=== PATIENT | female | born 1960 | race Caucasian/White ===

== ENCOUNTER 2020-05-08 22:45 | Observation (INO) | payer MEDICARE ==
[2020-05-08 23:08] LABS: HCT 39.7 % (34.0-46.0); HGB 12.8 gm/dL (11.4-16.0); Hypochromasia Slight; MCHC 32.2 g/dL (31.0-37.0); MCV 102.4 fL (80.0-100.0); Macrocytosis Slight; Mean Platelet Volume 6.6; Platelet Count 374 k/uL (150-450); RBC 3.88 m/uL (3.80-5.40); RDW 14.2 % (11.5-15.5); WBC 15.2 k/uL (3.8-10.6)
[2020-05-08 23:21] LABS: ALT 18 U/L (4-34); AST 38 U/L (14-36); African American GFR (CKD) 49 (>60 ml/min/1.73 sqM); Albumin 3.9 g/dL (3.5-5.0); Alcohol <10 mg/dL; Alkaline Phosphatase 110 U/L (38-126); Anion Gap 7 mmol/L; Blood Urea Nitrogen 19 mg/dL (7-17); Calcium 8.7 mg/dL (8.4-10.2); Carbon Dioxide 26 mmol/L (22-30); Chloride 100 mmol/L (98-107); Glucose 99 mg/dL (74-99); Non-African American GFR(CKD) 43 (>60 ml/min/1.73 sqM); Potassium 3.9 mmol/L (3.5-5.1); Sodium 133 mmol/L (137-145); Total Bilirubin 0.3 mg/dL (0.2-1.3); Total Protein 7.8 g/dL (6.3-8.2)
[2020-05-08 23:22] LABS: Lactic Acid, Venous 1.5 mmol/L (0.7-2.0)
[2020-05-08 23:30] LABS: Monocytes # (M) 0.61 k/uL (0-1.0); Neutrophils # (M) 10.79 k/uL (1.3-7.7); Neutrophils % (M) 71 %; Nucleated Red Blood Cells 0 /100 WBC (0-0); Total Cells Counted 100
[2020-05-08 23:33] LABS: INR 0.9 (<1.2); Partial Thromboplastin Time 23.6 sec (22.0-30.0); Prothrombin Time 9.9 sec (9.0-12.0)
--- NOTE | 2020-05-08 23:37 | ED ---
General Adult HPI - General Chief complaint: Overdose Stated complaint: unresponsive Time Seen by Provider: 05/08/20 22:55 Source: patient, EMS Mode of arrival: EMS Limitations: no limitations - History of Present Illness Initial comments: Patient is a 59-year-old woman brought by ambulance to be evaluated after her family thought that she had stopped breathing. The patient reported that she had been fairly active earlier in the day and she told family she was going to take a nap. She went to lie down on the couch, and then family member thought t hat she had stopped breathing. They did start performing CPR and called EMS. On EMS arrival, the patient did have palpable pulses and detectable heart rhythm. They administered 2 mg of Narcan and the patient became alert and responsive. No ACLS was required. When I interview the patient, she denies any symptoms other than a little bit of headache, which she states is typical of her usual headaches. She states she tends to get headaches regularly. Patient denies any neurologic symptoms. No chest pain or palpitations. No dyspnea, nausea or vomiting. She denies recent change in bowel movements or urination. -: minutes(s) Location: head Radiation: non-radiation Severity scale (1-10): 2 Quality: dull Consistency: constant Improves with: none Worsens with: none Associated Symptoms: denies other symptoms Treatments Prior to Arrival: none - Related Data Home Medications Medication Instructions Recorded Confirmed Ergocalciferol [Vitamin D2 50,000 unit PO FR 05/09/20 05/09/20 (DRISDOL)] Metoprolol Tartrate [Lopressor] 75 mg PO BID 05/09/20 05/09/20 Previous Rx's Medication Instructions Recorded Cyclobenzaprine [Flexeril] 10 mg PO BID PRN #0 05/09/20 Naloxone [Narcan] 1 mg SQ ONCE PRN #2 syringe 05/09/20 oxyCODONE-APAP 10-325MG [Percocet 1 tab PO BID PRN #0 05/09/20 10-325 mg] Allergies Allergy/AdvReac Type Severity Reaction Status Date / Time cephalexin Allergy Dyspnea Verified 05/09/20 08:03 Review of Systems ROS Statement: Those systems with pertinent positive or pertinent negative responses have been documented in the HPI. ROS Other: All systems not noted in ROS Statement are negative. Constitutional: Denies: fever, chills Eyes: Denies: vision change Respiratory: Denies: cough, dyspnea, wheezes, hemoptysis Cardiovascular: Denies: chest pain, palpitations, orthopnea, edema, syncope Gastrointestinal: Denies: abdominal pain, nausea, vomiting, diarrhea Genitourinary: Denies: dysuria, hematuria Musculoskeletal: Denies: back pain Skin: Denies: rash Neurological: Reports: headache. Denies: weakness, numbness, paresthesias, confusion, vertigo Past Medical History Past Medical History: Cancer, COPD, Hypertension Additional Past Medical History / Comment(s): cervical cancer, breast cancer History of Any Multi-Drug Resistant Organisms: None Reported Additional Past Surgical History / Comment(s): ooferectomy Past Psychological History: No Psychological Hx Reported Smoking Status: Current every day smoker Past Alcohol Use History: None Reported Past Drug Use History: Marijuana General Exam Limitations: no limitations General appearance: alert, in no apparent distress Head exam: Present: atraumatic, normocephalic Eye exam: Present: normal appearance. Absent: scleral icterus, conjunctival injection ENT exam: Present: mucous membranes dry Neck exam: Present: normal inspection Respiratory exam: Present: normal lung sounds bilaterally. Absent: respiratory distress, wheezes, rales, rhonchi, stridor Cardiovascular Exam: Present: regular rate, normal rhythm, normal heart sounds. Absent: systolic murmur, diastolic murmur, rubs, gallop GI/Abdominal exam: Present: soft. Absent: distended, tenderness, guarding, rebound, rigid, mass Extremities exam: Present: normal inspection, normal capillary refill. Absent: pedal edema, calf tenderness Back exam: Present: normal inspection. Absent: CVA tenderness (R), CVA tenderness (L) Neurological exam: Present: alert, oriented X3, CN II-XII intact. Absent: motor sensory deficit Skin exam: Present: warm, dry, intact, normal color. Absent: rash Course Vital Signs 05/08/20 05/08/20 05/08/20 22:50 23:04 23:36 Temperature 97.8 F Pulse Rate 88 Respiratory 18 18 Rate Blood Pressure 132/79 O2 Sat by Pulse 99 Oximetry 05/09/20 05/09/20 05/09/20 00:24 01:00 02:03 Temperature Pulse Rate 70 69 Respiratory 18 14 Rate Blood Pressure 111/71 105/59 O2 Sat by Pulse 95 95 100 Oximetry 05/09/20 02:40 Temperature Pulse Rate 70 Respiratory 15 Rate Blood Pressure 109/69 O2 Sat by Pulse 96 Oximetry EKG Findings - EKG Results: EKG: interpreted by KYLE BEAVERS, sinus rhythm (Rate 74 bpm), normal axis, normal QRS, normal ST/T, no acute changes Medical Decision Making - Medical Decision Making Patient is a 59-year-old woman brought from home where she appeared to stop breathing while sleeping. The patient did become responsive when EMS gave Narcan. The patient will be admitted for telemetry monitoring and serial cardiac enzymes. In addition there may be a trace of pneumonia, and patient started on azithromycin for atypical organisms. - Lab Data Result diagrams: 05/09/20 05:31 05/09/20 05:31 Lab Results 05/08/20 05/08/20 05/08/20 Range/Units 23:04 23:04 23:04 WBC 15.2 H (3.8-10.6) k/uL RBC 3.88 (3.80-5.40) m/uL Hgb 12.8 (11.4-16.0) gm/dL Hct 39.7 (34.0-46.0) % MCV 102.4 H (80.0-100.0) fL MCH 33.0 (25.0-35.0) pg MCHC 32.2 (31.0-37.0) g/dL RDW 14.2 (11.5-15.5) % Plt Count 374 (150-450) k/uL MPV 6.6 Neutrophils % (Manual) 71 % Lymphocytes % (Manual) 25 % Monocytes % (Manual) 4 % Neutrophils # (Manual) 10.79 H (1.3-7.7) k/uL Lymphocytes # (Manual) 3.80 (1.0-4.8) k/uL Monocytes # (Manual) 0.61 (0-1.0) k/uL Nucleated RBCs 0 (0-0) /100 WBC Manual Slide Review Performed Hypochromasia Slight Macrocytosis Slight PT (9.0-12.0) sec INR (<1.2) APTT (22.0-30.0) sec Sodium 133 L (137-145) mmol/L Potassium 3.9 (3.5-5.1) mmol/L Chloride 100 (98-107) mmol/L Carbon Dioxide 26 (22-30) mmol/L Anion Gap 7 mmol/L BUN 19 H (7-17) mg/dL Creatinine 1.34 H (0.52-1.04) mg/dL Est GFR (CKD-EPI)AfAm 49 (>60 ml/min/1.73 sqM) Est GFR (CKD-EPI)NonAf 43 (>60 ml/min/1.73 sqM) Glucose 99 (74-99) mg/dL Plasma Lactic Acid Darren 1.5 (0.7-2.0) mmol/L Calcium 8.7 (8.4-10.2) mg/dL Total Bilirubin 0.3 (0.2-1.3) mg/dL AST 38 H (14-36) U/L ALT 18 (4-34) U/L Alkaline Phosphatase 110 (38-126) U/L Ammonia <9 (<30) umol/L Troponin I (0.000-0.034) ng/mL Total Protein 7.8 (6.3-8.2) g/dL Albumin 3.9 (3.5-5.0) g/dL Urine Color Urine Appearance (Clear) Urine pH (5.0-8.0) Ur Specific [place] (1.001-1.035) Urine Protein (Negative) Urine Glucose (UA) (Negative) Urine Ketones (Negative) Urine Blood (Negative) Urine Nitrite (Negative) Urine Bilirubin (Negative) Urine Urobilinogen (<2.0) mg/dL Ur Leukocyte Esterase (Negative) Urine RBC (0-5) /hpf Urine WBC (0-5) /hpf Hyaline Casts (0-2) /lpf Urine Mucus (None) /hpf Urine Opiates Screen (NotDetected) Ur Oxycodone Screen (NotDetected) Urine Methadone Screen (NotDetected) Ur Propoxyphene Screen (NotDetected) Ur Barbiturates Screen (NotDetected) U Tricyclic Antidepress (NotDetected) Ur Phencyclidine Scrn (NotDetected) Ur Amphetamines Screen (NotDetected) U Methamphetamines Scrn (NotDetected) U Benzodiazepines Scrn (NotDetected) Urine Cocaine Screen (NotDetected) U Marijuana (THC) Screen (NotDetected) Serum Alcohol <10 mg/dL Coronavirus (PCR) (Not Detectd) 05/08/20 05/08/20 05/09/20 Range/Units 23:04 23:19 01:00 WBC (3.8-10.6) k/uL RBC (3.80-5.40) m/uL Hgb (11.4-16.0) gm/dL Hct (34.0-46.0) % MCV (80.0-100.0) fL MCH (25.0-35.0) pg MCHC (31.0-37.0) g/dL RDW (11.5-15.5) % Plt Count (150-450) k/uL MPV Neutrophils % (Manual) % Lymphocytes % (Manual) % Monocytes % (Manual) % Neutrophils # (Manual) (1.3-7.7) k/uL Lymphocytes # (Manual) (1.0-4.8) k/uL Monocytes # (Manual) (0-1.0) k/uL Nucleated RBCs (0-0) /100 WBC Manual Slide Review Hypochromasia Macrocytosis PT 9.9 (9.0-12.0) sec INR 0.9 (<1.2) APTT 23.6 (22.0-30.0) sec Sodium (137-145) mmol/L Potassium (3.5-5.1) mmol/L Chloride (98-107) mmol/L Carbon Dioxide (22-30) mmol/L Anion Gap mmol/L BUN (7-17) mg/dL Creatinine (0.52-1.04) mg/dL Est GFR (CKD-EPI)AfAm (>60 ml/min/1.73 sqM) Est GFR (CKD-EPI)NonAf (>60 ml/min/1.73 sqM) Glucose (74-99) mg/dL Plasma Lactic Acid Darren (0.7-2.0) mmol/L Calcium (8.4-10.2) mg/dL Total Bilirubin (0.2-1.3) mg/dL AST (14-36) U/L ALT (4-34) U/L Alkaline Phosphatase (38-126) U/L Ammonia (<30) umol/L Troponin I <0.012 (0.000-0.034) ng/mL Total Protein (6.3-8.2) g/dL Albumin (3.5-5.0) g/dL Urine Color Yellow Urine Appearance Clear (Clear) Urine pH 5.5 (5.0-8.0) Ur Specific [place] 1.019 (1.001-1.035) Urine Protein 1+ H (Negative) Urine Glucose (UA) Negative (Negative) Urine Ketones Negative (Negative) Urine Blood Negative (Negative) Urine Nitrite Negative (Negative) Urine Bilirubin Negative (Negative) Urine Urobilinogen <2.0 (<2.0) mg/dL Ur Leukocyte Esterase Negative (Negative) Urine RBC 9 H (0-5) /hpf Urine WBC 1 (0-5) /hpf Hyaline Casts 1 (0-2) /lpf Urine Mucus Rare H (None) /hpf Urine Opiates Screen Detected H (NotDetected) Ur Oxycodone Screen Detected H (NotDetected) Urine Methadone Screen Not Detected (NotDetected) Ur Propoxyphene Screen Not Detected (NotDetected) Ur Barbiturates Screen Not Detected (NotDetected) U Tricyclic Antidepress Detected H (NotDetected) Ur Phencyclidine Scrn Not Detected (NotDetected) Ur Amphetamines Screen Not Detected (NotDetected) U Methamphetamines Scrn Not Detected (NotDetected) U Benzodiazepines Scrn Not Detected (NotDetected) Urine Cocaine Screen Not Detected (NotDetected) U Marijuana (THC) Screen Detected H (NotDetected) Serum Alcohol mg/dL Coronavirus (PCR) (Not Detectd) 05/09/20 Range/Units 01:04 WBC (3.8-10.6) k/uL RBC (3.80-5.40) m/uL Hgb (11.4-16.0) gm/dL Hct (34.0-46.0) % MCV (80.0-100.0) fL MCH (25.0-35.0) pg MCHC (31.0-37.0) g/dL RDW (11.5-15.5) % Plt Count (150-450) k/uL MPV Neutrophils % (Manual) % Lymphocytes % (Manual) % Monocytes % (Manual) % Neutrophils # (Manual) (1.3-7.7) k/uL Lymphocytes # (Manual) (1.0-4.8) k/uL Monocytes # (Manual) (0-1.0) k/uL Nucleated RBCs (0-0) /100 WBC Manual Slide Review Hypochromasia Macrocytosis PT (9.0-12.0) sec INR (<1.2) APTT (22.0-30.0) sec Sodium (137-145) mmol/L Potassium (3.5-5.1) mmol/L Chloride (98-107) mmol/L Carbon Dioxide (22-30) mmol/L Anion Gap mmol/L BUN (7-17) mg/dL Creatinine (0.52-1.04) mg/dL Est GFR (CKD-EPI)AfAm (>60 ml/min/1.73 sqM) Est GFR (CKD-EPI)NonAf (>60 ml/min/1.73 sqM) Glucose (74-99) mg/dL Plasma Lactic Acid Darren (0.7-2.0) mmol/L Calcium (8.4-10.2) mg/dL Total Bilirubin (0.2-1.3) mg/dL AST (14-36) U/L ALT (4-34) U/L Alkaline Phosphatase (38-126) U/L Ammonia (<30) umol/L Troponin I (0.000-0.034) ng/mL Total Protein (6.3-8.2) g/dL Albumin (3.5-5.0) g/dL Urine Color Urine Appearance (Clear) Urine pH (5.0-8.0) Ur Specific [place] (1.001-1.035) Urine Protein (Negative) Urine Glucose (UA) (Negative) Urine Ketones (Negative) Urine Blood (Negative) Urine Nitrite (Negative) Urine Bilirubin (Negative) Urine Urobilinogen (<2.0) mg/dL Ur Leukocyte Esterase (Negative) Urine RBC (0-5) /hpf Urine WBC (0-5) /hpf Hyaline Casts (0-2) /lpf Urine Mucus (None) /hpf Urine Opiates Screen (NotDetected) Ur Oxycodone Screen (NotDetected) Urine Methadone Screen (NotDetected) Ur Propoxyphene Screen (NotDetected) Ur Barbiturates Screen (NotDetected) U Tricyclic Antidepress (NotDetected) Ur Phencyclidine Scrn (NotDetected) Ur Amphetamines Screen (NotDetected) U Methamphetamines Scrn (NotDetected) U Benzodiazepines Scrn (NotDetected) Urine Cocaine Screen (NotDetected) U Marijuana (THC) Screen (NotDetected) Serum Alcohol mg/dL Coronavirus (PCR) Not Detected (Not Detectd) Disposition Clinical Impression: Accidental drug overdose, Syncope Narrative: Possible pneumonia Disposition: ADMITTED IP TO THIS HOSP Condition: Fair
--- NOTE | 2020-05-08 23:54 | CT ---
EXAMINATION TYPE: CT brain wo con DATE OF EXAM: 05/08/2020 COMPARISON: None HISTORY: syncope episodes CT DLP: 1131.4 mGycm Automated exposure control for dose reduction was used. Ventricles have normal size. There is no mass effect nor midline shift. There is no sign of intracran ial hemorrhage. There is no evidence of cerebral edema. The calvarium is intact. Skull base is intact . Sella turcica appears normal. IMPRESSION: Negative unenhanced head CT scan.
--- NOTE | 2020-05-08 23:56 | XR ---
EXAMINATION TYPE: XR chest 1V portable DATE OF EXAM: 05/08/2020 COMPARISON: NONE HISTORY: Chest pain TECHNIQUE: Single view FINDINGS: There is some coarsening interstitial markings. There is no heart failure. Heart size is no rmal. Thoracic aorta is atheromatous. IMPRESSION: Mild pulmonary interstitial infiltrates. This could relate to some mild interstitial pneu monia or fibrosis.
[2020-05-09 01:12] LABS: Appearance,Urine Clear (Clear); Bilirubin,Urine Negative (Negative); Blood,Urine Negative (Negative); Color,Urine Yellow; Glucose,Urine (UA) Negative (Negative); Hyaline Casts,Urine 1 /lpf (0-2); Ketones,Urine Negative (Negative); Leukocyte Esterase,Urine Negative (Negative); Mucus,Urine Rare /hpf; Nitrite,Urine Negative (Negative); PH, Urine 5.5 (5.0-8.0); Protein,Urine 1+ (Negative); RBC,Urine 9 /hpf (0-5); Specific Gravity,Urine 1.019 (1.001-1.035); Urobilinogen,Urine <2.0 mg/dL (<2.0); WBC,Urine 1 /hpf (0-5)
[2020-05-09] MEDS ORDERED: ACETAMINOPHEN TAB 325 MG TAB PO STA (01:13)
[2020-05-09 01:19] LABS: Cocaine Screen,Urine Not Detected (NotDetected); Phencyclidine Screen,Urine Not Detected (NotDetected); Urn Cannabinoid Scrn Detected (NotDetected)
[2020-05-09 01:20] LABS: Amphetamine Screen,Urine Not Detected (NotDetected); Barbiturate Screen,Urine Not Detected (NotDetected); Benzodiazepines Screen,Urine Not Detected (NotDetected); Methadone Screen, Urine Not Detected (NotDetected); Opiate Screen,Urine Detected (NotDetected); Oxycodone Screen, Urine Detected (NotDetected); Tricyclic Antidepressant,Urine Detected (NotDetected)
[2020-05-09] MEDS ORDERED: NITROGLYCERIN SL TABS 0.4 MG TAB SUBLINGUAL PRN (02:03)
[2020-05-09] MEDS ORDERED: AZITHROMYCIN 500 MG TAB PO STA (02:06)
[2020-05-09] MEDS: IPRATROPIUM-ALBUTEROL 3 ML NEB INHALATION SCH ×2 (07:24→11:18)
[2020-05-09 08:42] VITALS: BP 118/79; RESP 16; TEMP 97.5
[2020-05-09] MEDS ORDERED: oxyCODONE-APAP 10-325MG 1 EACH TAB PO PRN (08:58)
[2020-05-09] MEDS ORDERED: ACETAMINOPHEN TAB 325 MG TAB PO PRN (09:00)
[2020-05-09] MEDS ORDERED: ERGOCALCIFEROL 50,000 UNIT CAP PO SCH (09:00)
[2020-05-09] MEDS ORDERED: METOPROLOL TARTRATE 25 MG TAB PO SCH (09:00)
[2020-05-09] MEDS ORDERED: CYCLOBENZAPRINE 10 MG TAB PO SCH (09:00)
[2020-05-09 09:37] LABS: HGB 12.1 gm/dL (11.4-16.0); Hypochromasia Marked; MCH 32.7 pg (25.0-35.0); MCHC 31.1 g/dL (31.0-37.0); MCV 105.2 fL (80.0-100.0); Macrocytosis Moderate; Mean Platelet Volume 7.4; Platelet Count 360 k/uL (150-450); RBC 3.71 m/uL (3.80-5.40); WBC 14.4 k/uL (3.8-10.6)
[2020-05-09 09:46] LABS: Calcium 8.6 mg/dL (8.4-10.2); Potassium 5.1 mmol/L (3.5-5.1)
[2020-05-09 10:12] LABS: Eosinophils # (M) 0.14 k/uL (0-0.7); Monocytes # (M) 0.58 k/uL (0-1.0); Neutrophils # (M) 8.78 k/uL (1.3-7.7); Neutrophils % (M) 61 %; Nucleated Red Blood Cells 0 /100 WBC (0-0); Total Cells Counted 100
[2020-05-09 11:29] VITALS: PULSE 73
[2020-05-10] MEDS ORDERED: ASPIRIN 325 MG TAB PO SCH (09:00)
--- NOTE | 2020-05-25 23:35 | P.HPIM ---
History of Present Illness H&P Date: 05/09/20 Chief Complaint: Decreased responsiveness Patient is a 59-year-old female with known history of COPD, hypertension, cervical cancer and breast cancer and currently everyday smoker and marijuana use was brought to the hospital by her family thought that she had stopped breathing. Patient usually fairly active earlier in the day and told family she was going to take a nap. She went to lie down on the couch and then family noticed that she has trouble breathing. They did perform CPR at home and called EMS. Upon EMS arrival, patient did have palpable pulses undetectable heart rhythm. Patient was administered with 2 mg of Narcan and patient became more alert and responsive. No ACLS was required. Patient does complain of mild headache which she gets on and off exam no recent illnesses. No complaints of any rashes. No dysuria or hematuria. No dizziness or lightheadedness. No diarrhea or abdominal pain. CT head showed negative unenhanced head CT scan. Chest x-ray showed mild pulmonary interstitial infiltrates. Did correlate to some mild interstitial pneumonia or fibrosis. Lab data showed WBC 15.2, hemoglobin 12.8 and platelets 374 Sodium 133, potassium 3.9, BUN 19 and creatinine 1.34 AST of 38 ALT 18 Urine negative for infection UDS is positive for opiates, oxycodone, tricyclic antidepressants and marijuana. Review of Systems Constitutional: Patient denies any fever or chills . No generalized weakness or weight loss. Abdomen: Patient denied nausea vomiting and diarrhea and abdominal pain. Cardiovascular: Patient denies any chest pain or short of breath no palpitations. Respiratory: patient denied any cough or sputum production. No shortness of breath Neurologic: Patient denied any numbness or tingling headache. Musculoskeletal: Patient denies any complaints of joint swelling or deformity. Skin: Negative Psychiatric: Negative Endocrine: No heat or cold intolerance. No recent weight gain. Genitourinary: No dysuria or hematuria. All other 14 point ROS negative except the above Past Medical History Past Medical History: Cancer, COPD, Hypertension Additional Past Medical History / Comment(s): cervical cancer, breast cancer History of Any Multi-Drug Resistant Organisms: None Reported Additional Past Surgical History / Comment(s): ooferectomy Past Psychological History: No Psychological Hx Reported Smoking Status: Current every day smoker Past Alcohol Use History: None Reported Past Drug Use History: Marijuana Medications and Allergies Home Medications Medication Instructions Recorded Confirmed Type Cyclobenzaprine [Flexeril] 10 mg PO BID PRN #0 05/09/20 05/09/20 Rx Ergocalciferol [Vitamin D2 50,000 unit PO FR 05/09/20 05/09/20 History (DRISDOL)] Metoprolol Tartrate [Lopressor] 75 mg PO BID 05/09/20 05/09/20 History Naloxone [Narcan] 1 mg SQ ONCE PRN #2 syringe 05/09/20 Rx oxyCODONE-APAP 10-325MG [Percocet 1 tab PO BID PRN #0 05/09/20 05/09/20 Rx 10-325 mg] Allergies Allergy/AdvReac Type Severity Reaction Status Date / Time cephalexin Allergy Dyspnea Verified 05/09/20 08:03 Physical Exam Vitals: Vital Signs Temp Pulse Pulse Resp BP BP Pulse Ox 05/09/20 11:29 73 05/09/20 11:19 72 05/09/20 08:32 97.5 F L 81 16 118/79 95 05/09/20 03:15 98.1 F 67 18 102/61 100 05/09/20 02:40 70 15 109/69 96 05/09/20 02:03 100 05/09/20 01:00 69 14 105/59 95 05/09/20 00:24 70 18 111/71 95 05/08/20 23:36 18 05/08/20 23:04 99 05/08/20 22:50 97.8 F 88 18 132/79 Intake and Output 05/08/20 05/09/20 05/09/20 22:59 06:59 14:59 Other: # Voids 0 Weight 58.967 kg 58.967 kg PHYSICAL EXAMINATION: Patient is lying in the bed comfortably, no acute distress, awake alert and oriented.. HEENT: Normocephalic. Neck is supple. Pupils reactive. Nostrils clear. Oral cavity is moist. Ears reveal no drainage. Neck reveals no JVD, carotid bruits, or thyromegaly. CHEST EXAMINATION: Trachea is central. Symmetrical expansion. Lung gallagher clear to auscultation and percussion. CARDIAC: Normal S1, S2 with no gallops. No murmurs ABDOMEN: Soft. Bowel sounds normal. No organomegaly. No abdominal bruits. Extremities: reveal no edema. No clubbing or cyanosis Neurologically awake, alert, oriented x3 with well-coordinated movements. No focal deficits noted Skin: No rash or skin lesions. Psychiatric: Coperative. Nonsuicidal Musculoskeletal: No joint swelling or deformity. Normal range of motion. Results CBC & Chem 7: 05/09/20 05:31 05/09/20 05:31 Labs: Abnormal Lab Results - Last 24 Hours (Table) 05/08/20 05/08/20 05/09/20 Range/Units 23:04 23:04 01:00 WBC 15.2 H (3.8-10.6) k/uL RBC (3.80-5.40) m/uL MCV 102.4 H (80.0-100.0) fL Neutrophils # (Manual) 10.79 H (1.3-7.7) k/uL Lymphocytes # (Manual) (1.0-4.8) k/uL Sodium 133 L (137-145) mmol/L BUN 19 H (7-17) mg/dL Creatinine 1.34 H (0.52-1.04) mg/dL Glucose (74-99) mg/dL AST 38 H (14-36) U/L Urine Protein 1+ H (Negative) Urine RBC 9 H (0-5) /hpf Urine Mucus Rare H (None) /hpf Urine Opiates Screen Detected H (NotDetected) Ur Oxycodone Screen Detected H (NotDetected) U Tricyclic Antidepress Detected H (NotDetected) U Marijuana (THC) Screen Detected H (NotDetected) 05/09/20 05/09/20 Range/Units 05:31 05:31 WBC 14.4 H (3.8-10.6) k/uL RBC 3.71 L (3.80-5.40) m/uL MCV 105.2 H (80.0-100.0) fL Neutrophils # (Manual) 8.78 H (1.3-7.7) k/uL Lymphocytes # (Manual) 4.90 H (1.0-4.8) k/uL Sodium 134 L (137-145) mmol/L BUN 18 H (7-17) mg/dL Creatinine (0.52-1.04) mg/dL Glucose 109 H (74-99) mg/dL AST (14-36) U/L Urine Protein (Negative) Urine RBC (0-5) /hpf Urine Mucus (None) /hpf Urine Opiates Screen (NotDetected) Ur Oxycodone Screen (NotDetected) U Tricyclic Antidepress (NotDetected) U Marijuana (THC) Screen (NotDetected) Thrombosis Risk Factor Assmnt - DVT/VTE Prophylaxis DVT/VTE Prophylaxis: Pharmacologic Prophylaxis ordered - Choose All That Apply Each Risk Factor Represents 2 Points: Age 61-74 years Thrombosis Risk Factor Assessment Total Risk Factor Score: 2 Thrombosis Risk Factor Assessment Level: Low Risk Assessment and Plan Assessment: Decreased responsiveness at home likely due to pain medication and muscle relaxant use. Resolved now. UDS is positive for opiates, oxycodone, antidepressant marijuana acute kidney injury likely prerenal improved now Hypovolemic hyponatremia Hypertension COPD not in exacerbation Cervical cancer and breast cancer Currently everyday smoker Marijuana use DVT prophylaxis with heparin subcu Plan: Patient will be continued on IV hydration and was given IV Narcan in the ER and by EMS. Patient is awake alert and oriented x3 now. Patient was advised to r educe her pain medication dose and follow-up with primary care physician. Patient wishes to be discharged home today.
--- NOTE | 2020-05-25 23:37 | P.DS ---
Providers Date of admission: 05/09/20 02:05 Expected date of discharge: 05/09/20 Attending physician: Jurgen De Anda Primary care physician: Physician Nonstaff Hospital Course: Discharge diagnosis Decreased responsiveness at home likely due to pain medication and muscle relaxant use. Resolved now. UDS is positive for opiates, oxycodone, antidepressant marijuana acute kidney injury likely prerenal improved now Hypovolemic hyponatremia Hypertension COPD not in exacerbation Cervical cancer and breast cancer Currently everyday smoker Marijuana use DVT prophylaxis with heparin subcu Hospital course Patient is a 59-year-old female with known history of COPD, hypertension, cervical cancer and breast cancer and currently everyday smoker and marijuana use was brought to the hospital by her family thought that she had stopped breathing. Patient usually fairly active earlier in the day and told family she was going to take a nap. She went to lie down on the couch and then family noticed that she has trouble breathing. They did perform CPR at home and called EMS. Upon EMS arrival, patient did have palpable pulses undetectable heart rhythm. Patient was administered with 2 mg of Narcan and patient became more alert and responsive. No ACLS was required. Patient does complain of mild headache which she gets on and off exam no recent illnesses. No complaints of any rashes. No dysuria or hematuria. No dizziness or lightheadedness. No diarrhea or abdominal pain. CT head showed negative unenhanced head CT scan. Chest x-ray showed mild pulmonary interstitial infiltrates. Did correlate to some mild interstitial pneumonia or fibrosis. Lab data showed WBC 15.2, hemoglobin 12.8 and platelets 374 Sodium 133, potassium 3.9, BUN 19 and creatinine 1.34 AST of 38 ALT 18 Urine negative for infection UDS is positive for opiates, oxycodone, tricyclic antidepressants and marijuana. Patient was continued on IV hydration and was given IV Narcan in the ER and by EMS. Patient is awake alert and oriented x3 now. Patient was advised to reduce her pain medication dose and follow-up with primary care physician. Patient wishes to be discharged home today. Discharge physical examination was done and vitals reviewed. Patient Condition at Discharge: Fair Plan - Discharge Summary Discharge Rx Participant: No New Discharge Prescriptions: New Naloxone [Narcan] 1 mg SQ ONCE PRN #2 syringe PRN Reason: Opioid Reversal Continue Ergocalciferol [Vitamin D2 (DRISDOL)] 50,000 unit PO FR Metoprolol Tartrate [Lopressor] 75 mg PO BID Changed Cyclobenzaprine [Flexeril] 10 mg PO BID PRN #0 PRN Reason: Spasms oxyCODONE-APAP 10-325MG [Percocet 10-325 mg] 1 tab PO BID PRN #0 PRN Reason: Pain Discharge Medication List Cyclobenzaprine [Flexeril] 10 mg PO BID PRN #0 05/09/20 [Rx] Ergocalciferol [Vitamin D2 (DRISDOL)] 50,000 unit PO FR 05/09/20 [History] Metoprolol Tartrate [Lopressor] 75 mg PO BID 05/09/20 [History] Naloxone [Narcan] 1 mg SQ ONCE PRN #2 syringe 05/09/20 [Rx] oxyCODONE-APAP 10-325MG [Percocet 10-325 mg] 1 tab PO BID PRN #0 05/09/20 [Rx] Follow up Appointment(s)/Referral(s): Nonstaff,Physician [Primary Care Provider] - 1-2 days Patient Instructions/Handouts: Prescription Opioid Overdose (DC), Prescription Narcotic Overdose (DC) Discharge Disposition: HOME SELF-CARE
== END 2020-05-09 13:10 | disposition home or self-care (01) ==
LOC: EC 22:45 → SUPCPDRO 22:45 → 1SOBS 05-09 02:05
PROVIDERS: ADMIT Internal Medicine; ATTEND Internal Medicine
DX: R46.4 Slowness and poor responsiveness (principal); R82.5 Elevated urine levels of drugs, medicaments and biological substances; N17.9 Acute kidney failure, unspecified; E86.1 Hypovolemia; E87.1 Hypo-osmolality and hyponatremia; R51.9 Headache, unspecified; R91.8 Other nonspecific abnormal finding of lung field; I10 Essential (primary) hypertension; J44.9 Chronic obstructive pulmonary disease, unspecified; F17.200 Nicotine dependence, unspecified, uncomplicated; Z20.828 Contact with and (suspected) exposure to other viral communicable diseases; Z79.899 Other long term (current) drug therapy; Z88.1 Allergy status to other antibiotic agents; Z85.41 Personal history of malignant neoplasm of cervix uteri; Z85.3 Personal history of malignant neoplasm of breast; Z90.79 Acquired absence of other genital organ(s)
CPT/HCPCS: 99285; 36415; 94640; 93005; 80053; 80048; 82140; 83605; 84484 ×2; 85025 ×2; 85610; 85730; 81001; 87040; 80306; 87635; 71045; 70450; G0378; G0480; 80320